=== PATIENT | male | born 1950 | race Caucasian/White ===

== ENCOUNTER 2022-12-14 20:17 | Emergency (ER) | payer OTHER ==
[~2022-12-14] VITALS: Ht 175.3 cm; Wt 90.7 kg
[2022-12-14 20:34] VITALS: BP_SYST 142
--- NOTE | 2022-12-14 20:50 | NUR ---
Patient to ER bed 05 to gown for evaluation. Side rails up. Report given to BANDAR CANCHOLA
--- NOTE | 2022-12-14 20:55 | NUR ---
Received report from BANDAR Cannon; assuming care at this time.
[2022-12-14] MEDS ORDERED: NACL 0.9% 2,000 ML IV ONE (21:00)
[2022-12-14] MEDS ORDERED: AZITHROMYCIN 500 MG in NS 250 ML IV ONE (21:00)
--- NOTE | 2022-12-14 21:00 | NUR ---
Patient presents to ED from home accompanied by family with c/o fever and chills x1 day. Patient reports pain 0/10 at this time. Patient states "I was feeling okay working in my garage and then all of a sudden I just felt so cold. I got the chills and then I felt like I had a fever going on. So I decided to come to make sure I'm okay." Patient A/Ox4, VSS except for elevated temp, ambulatory, resp even and unlabored. Skin warm, dry, intact, color wnl for ethnicity. Nad noted at this time ER MD Durham made aware.
--- NOTE | 2022-12-14 21:04 | NUR ---
Lab at bedside.
[2022-12-14] MEDS ORDERED: AZITHROMYCIN 500 MG/VIAL (ZITHROMAX) IV ONE (21:06)
--- NOTE | 2022-12-14 21:10 | NUR ---
Fracisco CASTRO Kwaw at bedside.
[2022-12-14 21:21] LABS: BILIRUBIN,URINE NEGATIVE (NEGATIVE); BLOOD, URINE 3+ (NEGATIVE); COLOR,URINE YELLOW (YELLOW); GLUCOSE,URINE NEGATIVE (NEGATIVE); KETONES,URINE NEGATIVE (NEGATIVE); LEUKOCYTE ESTERASE ,URINE 3+ (NEGATIVE); NITRITE, URINE NEGATIVE (NEGATIVE); PROTEIN URINE 2+ (NEGATIVE); UROBILINOGEN,URINE 0.2 (0.2-1.0)
[2022-12-14 21:24] LABS: CLARITY/URINE HAZY (CLEAR)
[2022-12-14 21:50] LABS: ANION GAP 10 (5-15); CALCIUM 8.6 mg/dL (8.4-11.0); CHLORIDE 101 mmol/L (98-107); CREATININE 1.33 mg/dL (0.55-1.30); GLUCOSE 111 mg/dL (70-99); UREA NITROGEN, BLOOD 23 mg/dL (8-21)
[2022-12-14] MEDS ORDERED: CIPR500T5 PO (22:03)
[2022-12-14 22:05] LABS: HEMATOCRIT 39.6 % (36-54); HEMOGLOBIN 13.6 g/dL (14.0-18.0); MEAN CORPUSCULAR HEMOGLOBIN 31 pg (27-31); MEAN CORPUSCULAR HGB CONC 35 % (32-36); MEAN CORPUSCULAR VOLUME 90 fL (79.0-98.0); PLATELET COUNT (AUTO) 192 K/uL (130-430); RED BLOOD CELL COUNT(AUTO) 4.41 MIL/uL (4.2-6.2); RED CELL DISTRIBUTION WIDTH 13.9 % (9.0-15.0); WHITE BLOOD COUNT (AUTO) 8.7 K/uL (4.8-10.8)
[2022-12-14 22:06] LABS: ALANINE AMINOTRANSFERASE 19 U/L (12-78); ALBUMIN 3.9 g/dL (3.4-4.8); ASPARTATE AMINOTRANSFERASE 14 U/L (10-37); TOTAL BILIRUBIN 0.9 mg/dL (0.0-1.0)
[2022-12-14 22:41] LABS: WBC,URINE >100 /HPF (0-3)
[2022-12-14 22:42] LABS: BACTERIA,URINE MANY /HPF (None Seen)
--- NOTE | 2022-12-14 23:00 | NUR ---
Patient resting comfortably in bed with safety precautions in place and connected to monitor. Patient's family member at bedside. Nad noted at this time.
[2022-12-14 23:11] LABS: BAND % (MANUAL) 11 % (0-6); BASOPHILS % (MANUAL) 0 % (0-2); EOSINOPHILS % (MANUAL) 0 % (0-7); LYMPHOCYTES % (MANUAL) 2 % (20-46); MONOCYTES % (MANUAL) 0 % (0-11)
--- NOTE | 2022-12-15 00:14 | NUR ---
Patient given written and verbal discharge instructions and verbalizes understanding. ER DR CHAVEZ discussed with patient the results and treatment provided. Patient in stable condition. ID arm band removed. IV catheter removed intact and dressing applied, no active bleeding. Rx of CIPRO given. Patient educated on pain management and to follow up with PMD. Pain Scale 0/10. Opportunity for questions provided and answered. Medication side effect fact sheet provided.
[2022-12-15 00:15] VITALS: BP_SYST 125
--- NOTE | 2022-12-16 02:14 | NUR ---
RECEIVED PRELIMINARY REPORT OF BLOOD CULTURES GRAM NEGATIVE RODS. INFORMED DR CHAVEZ OF RESULTS. PER MD, NO FOLLOW UP NEEDED. PT WAS GIVEN ABX FROM HOME AND IN ED.
== END 2022-12-15 00:14 | disposition home or self-care (01) ==
LOC: SED 20:17
DX: N39.0 Urinary tract infection, site not specified (principal); R50.9 Fever, unspecified; E78.5 Hyperlipidemia, unspecified; I10 Essential (primary) hypertension; Z79.899 Other long term (current) drug therapy
CPT/HCPCS: 99285; 96365; 71045; 85027; 80053; 81000; 85007; 87040; 87086; 36415; 93005; 96368; 83605; J0456; J1956

== ENCOUNTER 2023-07-11 17:02 | Emergency (ER) | payer OTHER ==
[~2023-07-11] VITALS: Ht 175.3 cm; Wt 90.7 kg
[~2023-07-11 17:02] MED LIST: CIPR500T5 PO
[2023-07-11 17:08] VITALS: BP_SYST 174; PULSE 78; RESP 20; TEMP 98.1; O2SAT 96
[2023-07-11] MEDS ORDERED: LIDOCAINE/EPI 2% 1:100000 20 ML VIAL INJ ONE ×2 (17:12→17:15)
[2023-07-11] MEDS ORDERED: DIPHTH,PERTUSS(ACELL),TET VAC 0.5 ML VIAL (Tdap) I.M. ONE (17:15)
[2023-07-11 18:36] VITALS: BP_SYST 139; PULSE 64; RESP 18; TEMP 98.2; O2SAT 96
== END 2023-07-11 18:30 | disposition home or self-care (01) ==
LOC: SED 17:02
DX: S61.301A Unspecified open wound of left index finger with damage to nail, initial encounter (principal); I10 Essential (primary) hypertension; E78.5 Hyperlipidemia, unspecified; Z79.899 Other long term (current) drug therapy; W31.2XXA Contact with powered woodworking and forming machines, initial encounter; Y93.89 Activity, other specified; Y92.89 Other specified places as the place of occurrence of the external cause; Y99.8 Other external cause status
CPT/HCPCS: 90715; 99283

== ENCOUNTER 2023-07-13 09:43 | Emergency (ER) | payer OTHER ==
[~2023-07-13] VITALS: Ht 175.3 cm; Wt 90.7 kg
[2023-07-13 10:09] VITALS: BP_SYST 138; PULSE 53; RESP 19; TEMP 97; O2SAT 98
[2023-07-13] MEDS ORDERED: BACITRACIN 1 GM OINT TP ONE (10:30)
[2023-07-13] MEDS ORDERED: LIDOCAINE 1% 10 MG/ML, 20 ML MDV INJ ONE (10:30)
[2023-07-13] MEDS ORDERED: CLIN-142 PO (11:06)
[2023-07-13 11:28] VITALS: BP_SYST 126; PULSE 88; RESP 17; TEMP 97.9; O2SAT 97
== END 2023-07-13 11:28 | disposition home or self-care (01) ==
LOC: SED 09:43
DX: S61.301A Unspecified open wound of left index finger with damage to nail, initial encounter (principal); I10 Essential (primary) hypertension; E78.5 Hyperlipidemia, unspecified; Z79.899 Other long term (current) drug therapy; X58.XXXA Exposure to other specified factors, initial encounter; Y93.89 Activity, other specified; Y92.89 Other specified places as the place of occurrence of the external cause; Y99.8 Other external cause status
CPT/HCPCS: 99282